=== PATIENT | male | born 1940 | race Caucasian/White ===

== ENCOUNTER 2018-09-28 11:17 | Outpatient (CLI) | payer MEDICARE ==
[~2018-09-28 11:17] MED LIST: ASCO10004 PO; CALC1TAB38 PO; CELE200C PO; CHON250C PO; DILT240C77 PO; FLAX10004 PO; GLUC15006 PO; MOME17SP NS; MULT-257 PO; OMEG-123 PO; OMEP-110 PO; RED600CA2 PO; SAW1CAPS2 PO; TAMS0.4C2 PO
== END 2018-09-28 23:59 | disposition home or self-care (01) ==
LOC: CFH 11:17
PROVIDERS: ATTEND Internal Medicine Nephrology
DX: N28.9 Disorder of kidney and ureter, unspecified (principal)
CPT/HCPCS: 76770